=== PATIENT | male | born 1995 | race Two or more races ===

== ENCOUNTER 2016-09-12 20:47 | Emergency (ER) | payer OTHER ==
[~2016-09-12] VITALS: Ht 175.3 cm; Wt 68.0 kg
[2016-09-12 21:09] VITALS: BP 100/70
== END 2016-09-12 23:46 | disposition home or self-care (01) ==
LOC: ER 21:03
DX: S05.01XA Injury of conjunctiva and corneal abrasion without foreign body, right eye, initial encounter (principal); W21.05XA Struck by basketball, initial encounter; Y93.67 Activity, basketball; Y99.8 Other external cause status; Y92.89 Other specified places as the place of occurrence of the external cause